=== PATIENT | male | born 1980 | race Caucasian/White ===

== ENCOUNTER 2022-03-18 10:04 | Emergency (ER) | payer OTHER ==
[2022-03-18 10:11] VITALS: TEMP 98
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
[2022-03-18 11:09] VITALS: BP 154/89; PULSE 84; RESP 18
== END 2022-03-18 11:29 | disposition home or self-care (01) ==
LOC: EC 10:04
DX: Z02.83 Encounter for blood-alcohol and blood-drug test (principal); S09.90XA Unspecified injury of head, initial encounter; Z88.2 Allergy status to sulfonamides; Z88.8 Allergy status to other drugs, medicaments and biological substances; W23.1XXA Caught, crushed, jammed, or pinched between stationary objects, initial encounter
CPT/HCPCS: 99283

== ENCOUNTER → 2024-02-20 | Outpatient (CLI) | payer BC ==
--- NOTE | 2024-02-24 18:09 | XR ---
EXAMINATION TYPE: XR Hip Complete RT DATE OF EXAM: 02/20/2024 3:58 PM CLINICAL INDICATION: Male, 43 years old with history of [id number] RT HIP PAIN; COMPARISON: None. TECHNIQUE: XR Hip Complete RT; hip was examined in the frontal and lateral projections FINDINGS: No evidence for acute process, joint dislocation or significant soft tissue swelling. Osteo phyte formation of the superior acetabulum of the hip. There is mild joint space narrowing. IMPRESSION: 1. No evidence for acute process. 2. Mild hip osteoarthrosis.
== END | disposition home or self-care (01) ==
LOC: RADXRYALE 15:45
PROVIDERS: ATTEND Physician Assistant
DX: M16.11 Unilateral primary osteoarthritis, right hip (principal)
CPT/HCPCS: 73502